=== PATIENT | male | born 1935 | race Caucasian/White ===

== ENCOUNTER 2017-09-10 13:23 | Emergency (ER) | payer MEDICARE, BC ==
[~2017-09-10] VITALS: Ht 175.3 cm; Wt 68.4 kg
[~2017-09-10 13:23] MED LIST: ASPI81TA11 PO; CARV3.12 PO; LISI-363 PO; ZOCO40TA PO
[2017-09-10 13:25] VITALS: BP 157/79; PULSE 93; RESP 18; TEMP 99; O2SAT 94
[2017-09-10] MEDS ORDERED: ASPI-516 CHEW (14:28)
[2017-09-10] MEDS ORDERED: SIMV20TA PO (14:28)
[2017-09-10] MEDS ORDERED: AMOX500C PO (14:28)
[2017-09-10] MEDS ORDERED: LISI-515 PO (14:28)
--- NOTE | 2017-09-10 14:44 | PD ---
HPI Chief Complaint: Cold / Flu Symptoms Time Seen by Provider: 14:44 Travel History International Travel<30 days: No Contact w/Intl Traveler<30days: No Traveled to known affect area: No History of Present Illness HPI 81-year-old male came to the emergency room with history of cough, fever and chills that has been going on for past couple weeks. She was concerned if he has influenza. He was also concerned because he has his at home who gets chemotherapy. Vital signs were relatively stable. He kept saying that he does not think it's anything serious but just wanted to get checked. He took 2 of 500 mg of Tylenol at 9:30 AM. He says his temperature at that time was 100. PFSH Past Medical History Narrative Medical List of his past medical, surgical, social and family history is reviewed from the nursing note. Hx Anticoagulant Therapy: No Cardiovascular Problems: Yes (STENTS, CHOL, HTN) Diabetes: No Diminished Hearing: No Gout: Yes Tetanus Vaccination: < 5 Years Influenza Vaccination: No Past Surgical History Surgical History: No Previous Surgery Genitourinary Surgery: Yes (TURP) Social History Alcohol Use: Yes ([employer] COUPLE TIMES WEEKLY) Tobacco Use: No Substance Use: No Allergies-Medications (Allergen,Severity, Reaction): Coded Allergies: No Known Allergies (Verified Adverse Reaction, Unknown, 09/10/17) Comments No known drug allergies. Reported Meds & Prescriptions Reported Meds & Active Scripts Active Zithromax Z-Isaiah (Azithromycin) 250 Mg Dspk 250 Mg PO DIRECTED 500 MG (2 tabs) day 1, then 1 tab days 2-5. Reported Amoxicillin 500 Mg Cap 500 Mg PO TID Aspirin 81 Mg Chew 81 Mg CHEW DAILY Lisinopril 20 Mg Tab 20 Mg PO DAILY Simvastatin 20 Mg Tab 20 Mg PO DAILY Narrative Medication List of his home medications reviewed from the nursing note. Review of Systems Except as stated in HPI: all other systems reviewed are Neg General / Constitutional: Positive: Fever Respiratory: Positive: Cough Physical Exam Narrative GENERAL: Awake, alert, disheveled, mild distress SKIN: Focused skin assessment warm/dry. HEAD: Atraumatic. Normocephalic. EYES: Pupils equal and round. No scleral icterus. No injection or drainage. ENT: No nasal bleeding or discharge. Mucous membranes pink and moist. NECK: Trachea midline. No JVD. CARDIOVASCULAR: Regular rate and rhythm. No murmur appreciated. RESPIRATORY: No accessory muscle use. Clear to auscultation. Breath sounds equal bilaterally. GASTROINTESTINAL: Abdomen soft, non-tender, nondistended. Hepatic and splenic margins not palpable. MUSCULOSKELETAL: No obvious deformities. No clubbing. No cyanosis. No edema. NEUROLOGICAL: Awake and alert. No obvious cranial nerve deficits. Motor grossly within normal limits. Normal speech. PSYCHIATRIC: Appropriate mood and affect; insight and judgment normal. Data Data Last Documented VS Orders Orders Influenzae A/B Antigen (09/10/17 14:03) Chest, Pa & Lat (09/10/17 ) Ed Discharge Order (09/10/17 16:02) [facility] Medical Decision Making Medical Screen Exam Complete: Yes Emergency Medical Condition: Yes Medical Record Reviewed: Yes Differential Diagnosis Bronchitis, pneumonia, influenza, viral illness Narrative Course 3:48 PM influenza is negative. Awaiting for chest x-ray to be done and resulted. I will probably start him on a Z-Isaiah patient is discharged. Procedures EKG Prior to Arrival: No Diagnosis Primary Impression: Bronchitis Additional Impression: Viral illness Referrals: Primary Care Physician Additional Instructions: Take the medication as per the prescription direction. Return to ER if condition worsens or any other new concerns. Otherwise follow-up with your primary care. Med/Other Pt SpecificInfo: Prescription(s) given Scripts Azithromycin (Zithromax Z-Isaiah) 250 Mg Dspk 250 MG PO DIRECTED for Infection, #1 DSPK 0 Refills 500 MG (2 tabs) day 1, then 1 tab days 2-5. Prov: Osiris Martinez MD 09/10/17 Disposition: 01 DISCHARGE HOME Condition: Stable Osiris Martinez MD Sep 10, 2017 14:44
--- NOTE | 2017-09-10 15:57 | RADRPT ---
EXAM DATE/TIME: 09/10/2017 15:45 [place] COMPARISON: No previous studies available for comparison. INDICATIONS : Cough, fever MEDICAL HISTORY : None. SURGICAL HISTORY : None. ENCOUNTER: Initial ACUITY: 2 weeks PAIN SCORE: 0/10 LOCATION: Bilateral chest FINDINGS: PA and lateral views of the chest demonstrate the lungs to be symmetrically aerated without evidence of mass, infiltrate or effusion. The cardiomediastinal contours are unremarkable. Osseous structure s are intact. CONCLUSION: Normal examination. Mild underlying interstitial lung disease with hyperinflation. Deangelo Franco MD on September 10, 2017 at 15:55 Board Certified Radiologist. This report was verified electronically.
[2017-09-10] MEDS ORDERED: ZITHTAB PO (16:02)
[2017-09-10 16:16] VITALS: BP 136/79
== END 2017-09-10 16:17 | disposition home or self-care (01) ==
LOC: PHEFT 13:23
DX: J20.8 Acute bronchitis due to other specified organisms (principal); I10 Essential (primary) hypertension; E78.00 Pure hypercholesterolemia, unspecified; M10.9 Gout, unspecified; Z79.82 Long term (current) use of aspirin; Z79.899 Other long term (current) drug therapy
CPT/HCPCS: 71046; 87804; 99284